=== PATIENT | female | born 1980 | race Caucasian/White ===

== ENCOUNTER 2025-04-12 16:57 | Emergency (ER) | payer MEDICAID, SELFPAY ==
[2025-04-12 17:06] VITALS: BP 135/87; PULSE 67; RESP 18; TEMP 36.4; O2SAT 97; BMI 34.4
--- NOTE | 2025-04-12 17:26 | XR_ITS ---
Examination: CT abdomen with intravenous contrast CT pelvis with intravenous contrast 2-D coronal reconstructions 2-D sagittal reconstructions Date and time of exam: April 12, 2025, 1857 hours INDICATIONS: Onset right-sided abdominal pain today. CTDI: vol (mGy) 11.9 DLP: (mGycm) 736 Technique: Multiple axial sections of the abdomen and pelvis have been obtained. 64 slice high-resolution scanner used. 3 mm axial sections have been obtained, post intravenous injection 60 cc [id number] 2-D sagittal, coronal reconstructions obtained. Low dose protocols were performed. One or more of the following dose reduction techniques were used; automated exposure control, adjustment of the mA and/or KV according to patient size, use of iterative reconstruction technique. Findings: No focal liver or splenic lesions Suspicious for tiny gallstones No pancreatic or adrenal mass Moderate renal scar formation No renal or ureteral calculi, no hydronephrosis Aorta normal size 10 mm fat-containing umbilical hernia Normal appendix No bowel obstruction Scattered colonic diverticulosis A few loops of fluid distended small bowel in the pelvis Bladder intact Absent uterus No pelvic mass Moderate osteopenia IMPRESSION: Recommend about a biliary sonography follow-up to confirm gallstones Moderate renal scar formation, no renal or ureteral calculi Normal appendix No bowel obstruction Mild small bowel ileus versus enteritis, clinical correlation advised
--- NOTE | 2025-04-12 17:27 | PD.EDRME ---
Rapid Medical Screening Exam E Arrival date/time: 04/12/25 16:57 Chief Complaint: Abdominal Pain Vital signs: Vital Signs Temperature 97.6 F 04/12/25 17:06 Pulse Rate 67 04/12/25 17:06 Respiratory Rate 18 04/12/25 17:06 Blood Pressure 135/87 H 04/12/25 17:06 Pulse Oximetry (%) 97 04/12/25 17:06 Oxygen Delivery Method Room Air 04/12/25 17:06 Vital signs reviewed by provider: Yes Exam: On exam patient appears to be in pain right sided abdominal and pelvic region Clinical Impression: Labs and imaging ordered
[2025-04-12 17:54] LABS: Collection Type, Urine Clean Catch
[2025-04-12 18:07] LABS: Basophils # (Auto) 0.1 Thou/mm3 (0.0-0.2); Basophils % (Auto) 1 % (0-2.5); Eosinophils # (Auto) 0.5 Thou/mm3 (0.0-0.5); Eosinophils % (Auto) 5 % (0-10); Hematocrit 40.0 % (36.0-46.0); Hemoglobin 12.1 g/dL (12.0-16.0); Immature Granulocytes Auto 0.02 Thou/mm3 (0.00-0.00); Lymphocytes # (Auto) 2.6 Thou/mm3 (1.0-4.8); Lymphocytes % (Auto) 24 % (10-50); Mean Corpuscular HGB Conc 30.3 g/dl (31.0-37.0); Mean Corpuscular Hemoglobin 26.8 pg (25.0-35.0); Mean Corpuscular Volume 89 fL (80-100); Monocytes # (Auto) 0.6 Thou/mm3 (0.0-0.8); Monocytes % (Auto) 6 % (0-12); Neutrophils # (Auto) 6.9 Thou/mm3 (1.8-7.7); Neutrophils % (Auto) 65 % (37-80); Nucleated Red Blood Cell # 0.00 Thou/mm3 (0.00-0.00); Nucleated Red Blood Cell % 0 /100 WBC (0); Platelet Count 342 Thou/mm3 (140-440); RDW Standard Deviation 47.0 fL (36.4-46.3); Red Blood Count 4.52 Miln/mm3 (4.00-5.20); White Blood Count 10.6 Thou/mm3 (3.6-11.0)
[2025-04-12 18:13] LABS: Bilirubin,Urine Negative (Negative); Blood,Urine Negative (Negative); Clarity,Urine Turbid (Clear/Hazy); Color,Urine Lt-Yellow (Lt Yel-Yel); Glucose, Urine Negative (Negative); Ketones,Urine Negative (Negative); Leukocyte Esterase,Urine Positive (Negative); Nitrite,Urine Negative (Negative); PH,Urine 6.0 (5.0-7.0); Protein,Urine Negative (Neg - Trace); RBC,Urine 1 /hpf (0-3); Specific Gravity,Urine 1.018 (1.001-1.035); Squamous Epithelial Cell,Urine 8 /hpf (0-5); Urobilinogen,Urine Negative mg/dL (0.0-1.0); WBC,Urine 73 /hpf (0-5)
[2025-04-12 18:14] LABS: Alanine Aminotransferase 19 U/L (10-49); Albumin, Serum 5.1 gm/dL (3.5-5.0); Albumin/Globulin Ratio 2.0 (1.2-2.2); Alkaline Phosphatase 103 U/L (46-116); Anion Gap 10 (7-16); Aspartate Amino Transferase 19 U/L (0-34); BUN/Creatinine Ratio 14 Ratio (12-20); Bilirubin,Total 0.2 mg/dL (0.3-1.2); Blood Urea Nitrogen 13 mg/dL (9-23); Calcium 9.7 mg/dL (8.3-10.6); Calcium (Corrected) 9.7 mg/dL (8.5-10.1); Carbon Dioxide 26.2 mMol/L (20.0-31.0); Chloride 106 mMol/L (98-107); Creatinine (Component) 0.9 mg/dL (0.6-1.3); Estimated Creatinine Clearance 95.8 mL/min (>60); Globulin 2.5 gm/dL (2.3-3.5); Glucose 85 mg/dL (74-106); Lipase 53 U/L (12-53); Osmolality,Calculated 282 (275-295); Potassium 4.4 mMol/L (3.4-5.1); Sodium 142 mMol/L (136-145); Total Protein 7.6 gm/dL (5.7-8.2); eGFR > 60 See Note
[2025-04-12 18:16] LABS: Culture Indicated,Urine Yes
[2025-04-12 18:44] VITALS: BP 122/82; PULSE 77; RESP 18; TEMP 36.8; O2SAT 97
--- NOTE | 2025-04-12 20:04 | XR_ITS ---
Examination: Abdomen sonogram, Limited Date and time of exam: April 12, 2025, 2014 hours INDICATIONS: Abdominal pain beginning 2 hours ago Technique: Real-time gates scale transabdominal sonographic images of the upper abdomen obtained. Findings: Gallbladder sludge No gallstones, normal gallbladder wall Normal common bile duct 0.5 cm Pancreatic head 3.5 cm Liver 18.5 cm fatty infiltration no focal liver lesions Normal hepatopetal portal venous flow Patent IVC IMPRESSION: Gallbladder sludge, negative for cholelithiasis, negative for cholecystitis
[2025-04-12] MEDS: HYDROcodone/APAP 5/325 TABLET 1 TAB PO (22:23)
[2025-04-12] MEDS: ONDANSETRON ODT 4 MG TABRAP PO (22:23)
--- NOTE | 2025-04-13 05:04 | PD.EDABDPN ---
ED Abdominal Pain RME/HPI General Chief Complaint: Abdominal Pain Stated complaint: Right lower abdominal pain X 2 hours Time seen by provider: 04/12/25 18:35 Arrival date/time: 04/12/25 16:57 This is a case of 45-year-old female who came in in the emergency room due to lower abdominal pain associated with nausea vomiting for 2 days patient denies any fever chills denies any constipation diarrhea denies any vaginal bleeding vaginal discharge persistence of the symptoms thus patient decided to start consult here in the emergency ROOM Limitations: no limitations RME / HPI RME / HPI narrative: 04/12/25 16:57 Exam: On exam patient appears to be in pain right sided abdominal and pelvic region Impression: Labs and imaging ordered Related Data Home Medications ?Medication ?Instructions ?Recorded ?Confirmed lithium carbonate 300 mg capsule 300 mg PO BID ##0 05/03/15 03/18/21 albuterol sulfate 90 mcg/actuation 2 puff inhalation Q6H PRN Wheezing 03/18/19 03/18/21 aerosol inhaler diphenhydramine HCl 50 mg capsule 50 mg PO HS PRN Itching 03/18/19 03/18/21 (Banophen) ferrous sulfate 325 mg (65 mg 325 mg PO QDAY 03/18/19 03/18/21 iron) tablet (iron) clonazepam 1 mg tablet 1 mg PO BID 03/08/21 03/18/21 docusate sodium 100 mg tablet 100 mg PO QDAY 03/08/21 03/18/21 ergocalciferol (vitamin D2) 1,250 1,250 mcg PO QWEEK 03/08/21 03/18/21 mcg (50,000 unit) capsule (Vitamin D2) famotidine 40 mg tablet 40 mg PO QDAY 03/08/21 03/18/21 meclizine 50 mg tablet 50 mg PO QDAY PRN Dizziness 03/08/21 03/18/21 paroxetine HCl 10 mg tablet 10 mg PO QDAY 03/08/21 03/18/21 topiramate 25 mg tablet 25 mg PO BID 03/08/21 03/18/21 trazodone 100 mg tablet 100 mg PO HS 03/08/21 03/18/21 ziprasidone HCl 40 mg capsule 40 mg PO HS 03/08/21 03/18/21 propranolol 20 mg tablet 20 mg PO BID 03/17/21 03/18/21 Previous Rx's ?Medication ?Instructions ?Recorded rivaroxaban 15 mg (42)-20 mg (9) See Rx Instructions PO .COMPLEX 03/20/21 tablets in a starter pack (Xarelto #51 tabs DVT-PE Treatment 30-Day Starter) cephalexin 500 mg tablet 500 mg PO QID 10 days #40 tabs 04/12/25 dicyclomine 20 mg tablet 20 mg PO TID PRN abdominal pain 04/12/25 #20 tabs ondansetron 4 mg disintegrating 4 mg PO Q8H #20 tabs 04/12/25 tablet Allergies Allergy/AdvReac Type Severity Reaction Status Date / Time heparin Allergy Verified 04/12/25 17:01 erythromycin base AdvReac Intermediate GI UPSET Verified 04/12/25 17:01 Past Medical History Past Medical History NEUROLOGIC: Positive Migraine; Negative Neurological Disorders, Cerebrovascular Accident, Dementia, Alzheimer's Disease, Brain Tumor, Meningitis, Seizures, Epilepsy, Cerebral Palsy, Amyotrophic Lateral Sclerosis (ALS/Jazmin Gehrig's), Guillain-[place] Syndrome, Boyce's Palsy or Head Trauma CARDIAC: Negative Cardiac Disorders, Cardiac Arrhythmia, Atrial Fibrillation, Angina, Atherosclerotic Heart Disease, Aneurysm, Congestive Heart Failure, Congenital Heart Disease, Cardiomyopathy, Edema, Cellulitis or Varicose Veins RESPIRATORY: Positive Asthma; Negative Chronic Obstructive Pulmonary Disease (COPD) GASTROINTESTINAL: Positive Gastrointestinal Disorders and Gastroesophageal Reflux Disease; Negative Hepatitis, Pancreatitis, Ulcerative Colitis, Ulcer, Irritable Bowel, Obstructive Bowel, Hiatal Hernia, Hemorrhoids or Obesity GENITOURINARY: Negative Genitourinary Disorders or Renal Disease REPRODUCTIVE: Positive Previous Pregnancies MUSCULOSKELETAL: Negative Musculoskeletal Disorders, Muscular Dystrophy, Myasthenia Gravis, Marfan's Syndrome, Arthritis, Rheumatoid Arthritis, Osteoporosis, Degenerative Disk Disease, Gout, Scoliosis, Fibromyalgia, Fractures, Degenerative Joint Disease, Osteomyelitis or Poliovirus ENT: Negative Cataracts, Glaucoma, Blind, Retinal Detachment, Macular Degeneration, Ear Infection, Deafness, Head Trauma or Eye Prosthesis ENDOCRINE: Positive Endocrine Disorders, Hypoglycemia and Hypothyroidism; Negative Diabetes Mellitus Type 1 or Diabetes Mellitus Type 2 HEMATOLOGIC: Positive Blood Disorders and Anemia; Negative Leukemia, Hemophilia, Thalassemia, Sickle Cell Disease or Clotting Problems PSYCHO/SOCIAL: Positive Bipolar Disorder, Depression, Anxiety and Depression; Negative Psychiatric Problems, Schizophrenia or Recreational Drug Use OTHER HISTORY: Positive Chicken Pox; Negative Hospitalization, Autoimmune Disease, Autism, Shingles, Falls, Blood Transfusions, Blood Transfusion Reaction, Anesthesia Reactions, Chemotherapy, Radiation Therapy, MRSA, Measles, Mumps or Cancer Family History FAMILY HISTORY: Positive Family Psychiatric Problems, Family Respiratory Disorders, Family Cardiac Disorders, Family Gastrointestinal Problems and Family Surgery; Negative Family Cancer or Family Anesthesia Reaction Surgical History SURGICAL: Positive Hysterectomy and Section; Negative Cardiac Surgery or Pacemaker Social History SMOKING STATUS: Never smoker SECOND HAND EXPOSURE: No ED Exam General Limitations: Present no limitations General appearance: Present alert, in no apparent distress and other Head Head exam: Present atraumatic, normocephalic and normal inspection Eye Eye exam: Present normal appearance, PERRL and EOMI ENT ENT exam: Present normal exam, normal oropharynx and mucous membranes moist Neck Neck exam: Present normal inspection, full ROM and trachea midline; Absent tenderness, meningismus, lymphadenopathy or thyromegaly Chest Chest inspection: Present normal inspection and symmetric chest wall rise; Absent tenderness Respiratory Respiratory exam: Present normal lung sounds bilaterally; Absent respiratory distress, wheezes, stridor, accessory muscle use or prolonged expiratory phase Cardiovascular Cardiovascular exam: Present regular rate, normal rhythm and normal heart sounds; Absent bradycardia, tachycardia, irregular rhythm, systolic murmur or diastolic murmur Abdominal Exam Abdominal exam: Present soft, tenderness (Mild tenderness on the right lower and right upper quadrant no guarding no rebound no rigidity negative psoas negative straight or negative Rovsing's negative McBurney's negative Fonseca sign negative CVA tenderness) and normal bowel sounds; Absent distention Extremities Exam Extremities exam: Present normal inspection and full ROM Back Exam Back exam: Present normal inspection and full ROM Neurological Exam Neurological exam: Present alert, oriented X3, CN II-XII intact, normal gait and reflexes normal; Absent motor sensory deficit Psychiatric Psychiatric exam: Present normal affect and normal mood Skin Skin exam: Present warm, dry, intact, normal color and other (Excellent skin turgor) Course Quality Measures none Orders Category Date Time Status CT Screening NOW Care 04/12/25 17:26 Completed Insert IV NOW Care 04/12/25 17:[address] abdomen pelvis w con Stat Exams 04/12/25 17:26 Completed US gall bladder Stat Exams 04/12/25 20:04 Completed CBC Stat Lab 04/12/25 17:40 Completed Comprehensive Metabolic Panel Stat Lab 04/12/25 17:40 Completed Lipase Stat Lab 04/12/25 17:40 Completed UA, C/S IF [Urinalysis, C/S if Indicated] Stat Lab 04/12/25 17:45 Completed Urine Culture Stat Lab 04/12/25 17:45 Received HYDROcodone*/APAP 5/325 [[place] 5/325] Med 04/12/25 22:11 Discontinued 1 tab PO X1 ONE Ondansetron Odt [Zofran Odt] Med 04/12/25 22:11 Discontinued 4 mg PO X1 ONE cefTRIAXone [Rocephin] 1,000 mg Med 04/12/25 22:11 Discontinued Lidocaine 1% Pf 5 ml [Xylocaine 1% Pf 5 ml] 2.1 ml IM X1 Vital Signs Vital signs: Vital Signs Temperature 97.6 F 04/12/25 17:06 Pulse Rate 67 04/12/25 17:06 Respiratory Rate 18 04/12/25 17:06 Blood Pressure 135/87 H 04/12/25 17:06 Pulse Oximetry (%) 97 04/12/25 17:06 Oxygen Delivery Method Room Air 04/12/25 17:06 None Abdominal Pain MDM MDM Narrative MDM Narrative:: This is a case of 45-year-old female who came in in the emergency room due to lower abdominal pain associated with nausea vomiting for 2 days patient denies any fever chills denies any constipation diarrhea denies any vaginal bleeding vaginal discharge persistence of the symptoms thus patient decided to start consult here in the emergency ROOM physical examination patient is awake alert oriented not in distress nontoxic looking well-hydrated well-nourished excellent skin turgor abdominal exam noted mild tenderness on the right lower right upper quadrant no guarding no rebound no rigidity negative obturator negative Rovsing's negative McBurney's negative Fonseca sign negative CVA tenderness the rest of the physical examination neurological exam is normal and unremarkable blood test showed no leukocytosis no anemia kidney and liver function is normal no electrolyte imbalance lipase is normal urinalysis shows WBC in the urine suggestive of urinary tract infection CT scan of the abdomen pelvis with contrast was performed normal appendix diverticulosis umbilical hernia suggest ultrasound of the gallbladder noted some tiny gallstone ultrasound of the gallbladder no gallstones but with gallbladder sludge patient was given Zofran and [place] which patient condition markedly improved patient was also given ceftriaxone IM for urinary tract infection patient will follow-up with PCP for reevaluation and to be rereferred to wood shop teacher for further evaluation and treatment of diverticulosis umbilical hernia and gallbladder sludge for any worsening symptoms or any emergent concern return precaution in the ER is advised Patient was discharged with comfortable condition walking with stable gait. Patient verbalized no further complains explained diagnosis and answered patient question. Patient is comfortable with the proposed management plan including the need to follow up with his/her primary care physician and any specialist if applicable Discussed patient for any urgent condition or worsening sx, He/She needed to go to emergency room immediately or call 911. Patient acknowledge the responsibility to follow up as instructed and to monitor her/his symptoms. For any persistence of the symptoms for more than 3-5 days return precaution advised. Discussed the result of the test and was given printed discharge instruction Patient data External records reviewed:: [facility] previous records Clinical information provided by:: patient Social determinants that could affect healthcare access:: none Patient has the following chronic illnesses:: None How is presenting disease/condition affected by chronic disease/condition?: no chronic disease Evaluation data The following diagnostics were reviewed and interpreted by me:: lab results and radiology exam(s) Lab and/or radiology exams considered but not ordered:: Reviewed Interpretation Summary: Reviewed Medications / Prescriptions Medications or Prescriptions considered but not ordered:: Given Medication administrations:: Medication Administration History Discontinued Medications Hydrocodone Bitart/Acetaminophen (Hydrocodone/Apap 5/325 Tablet) 1 tab PO X1 ONE Stop: 04/12/25 22:12 Last Admin: 04/12/25 22:23 Dose: 1 tab Documented By: MARTÍN Ceftriaxone Sodium 1,000 mg/ (Lidocaine HCl 2.1 ml) 0 mg IM X1 ONE Stop: 04/12/25 22:12 Last Admin: 04/12/25 22:24 Dose: 1,000 mg Documented By: Admin: 04/12/25 22:23 Dose: 1,000 mg Documented By: MARTÍN Ondansetron HCl (Ondansetron Odt 4 Mg Tabrap) 4 mg PO X1 ONE; Protocol Stop: 04/12/25 22:12 Last Admin: 04/12/25 22:23 Dose: 4 mg Documented By: MARTÍN Given Consultations Consultation(s) initiated? (list below): No Diagnosis Differential diagnosis abdominal pain: abdominal pain, acute appendicitis, calculus of kidney, diverticulitis, gastroenteritis, pancreatitis and small bowel obstruction Most likely diagnosis given after review of the tests above:: Urinary tract infection umbilical hernia diverticulosis Admission Indicated Admission indicated?: not indicated Explain why admission is indicated or not indicated:: Not indicated Admission Request Was there a request for admission?: No Admission Attestation Admission request attestation: Not indicated Disposition Plan Disposition Plan: Discharge Discharge Attestation Discharge Attestation: The patient and all family members were given an opportunity to ask questions and understood the discharge instructions. Discharge instructions specifically effects, indications for sooner follow up or return to the emergency department, and the expected course of current diagnosis. Patient condition: Stable Discharge Plan Plan Patient Disposition: HOME (Self Care) Patient condition on transfer: Stable Prescriptions/Referrals Prescriptions/Med Rec: New dicyclomine 20 mg tablet 20 mg PO TID PRN (Reason: abdominal pain) Qty: 20 0RF ondansetron 4 mg tablet,disintegrating 4 mg PO Q8H Qty: 20 0RF cephalexin 500 mg tablet 500 mg PO QID 10 Days Qty: 40 0RF No Action lithium carbonate 300 MG capsule 300 mg PO BID Qty: 0 diphenhydramine HCl [Banophen] 50 mg Capsule 50 mg PO HS PRN (Reason: Itching) ferrous sulfate [iron] 325 mg (65 mg iron) Tablet 325 mg PO QDAY albuterol sulfate 90 mcg/actuation Hfa Aerosol Inhaler 2 puff INHALATION Q6H PRN (Reason: Wheezing) ziprasidone HCl 40 mg Capsule 40 mg PO HS docusate sodium 100 mg Tablet 100 mg PO QDAY paroxetine HCl 10 mg Tablet 10 mg PO QDAY meclizine 50 mg Tablet 50 mg PO QDAY PRN (Reason: Dizziness) famotidine 40 mg Tablet 40 mg PO QDAY clonazepam 1 mg Tablet 1 mg PO BID topiramate 25 mg Tablet 25 mg PO BID trazodone 100 mg Tablet 100 mg PO HS ergocalciferol (vitamin D2) [Vitamin D2] 1,250 mcg (50,000 unit) Capsule 1,250 mcg PO QWEEK Rx Instructions: Weekly on Monday propranolol 20 mg Tablet 20 mg PO BID Xarelto DVT-PE Treat 30d Start 15 mg (42)- 20 mg (9) tablets,dose pack See Rx Instructions .ROUTE .COMPLEX Qty: 51 0RF Rx Instructions: Take one-15 mg tablet twice daily for 21 days, then one-20 mg tablet once daily; must take with meal/food Referrals: Asad Grant MD [Primary Care Provider, Family Practice] - In 1 week Problem List Clinical Impression: Abdominal pain, Urinary tract infection, Gallbladder sludge, Diverticulosis, Hernia, umbilical Patient/Caregiver Discharge Instructions Education Materials: Abdominal Pain, Urinary Tract Infections in Women, ED Hernia (Adult), ED Diverticulosis Additional Instructions: Follow-up with your primary care physician in 2 days for reevaluation and to be referred to wood shop teacher for further evaluation and treatment of diverticulosis umbilical hernia and gallbladder sludge recurrence persistent worsening symptoms or any emergent concern call 911 or go to the nearest emergency room take your medication as directed finish the course of antibiotic increase water intake keep hydrated Pedialyte Gatorade for hydration avoid skipping of meals avoid fatty fried high cholesterol food avoid soda coffee or alcohol avoid spicy food Print Language: Kyr[place]z Stand Alone Forms: [employer] Award Info., Patient Portal Info Letter PA/FURNACE MECHANIC HELPER Supervising Physician PA/FURNACE MECHANIC HELPER Supervising Physician: Dr. Bruno Holt
== END 2025-04-12 23:15 | disposition home or self-care (01) ==
PROVIDERS: Nurse Practitioner Primary Care; Emergency Provider Emergency Medicine; PCP Family Medicine
DX: N39.0 Urinary tract infection, site not specified (principal); K82.8 Other specified diseases of gallbladder; K57.30 Diverticulosis of large intestine without perforation or abscess without bleeding; K42.9 Umbilical hernia without obstruction or gangrene
CPT/HCPCS: 36415; 74177; 76705; 80053; 81001; 83690; 85025; 87086; 96372; 99284; A4649; J0696; J3490; Q0162; Q9967; A9270